=== PATIENT | female | born 1965 | race Caucasian/White ===

== ENCOUNTER 2016-11-23 19:07 | Observation (INO) | payer BC ==
--- NOTE | 2016-11-23 19:38 | ED ---
Chest Pain HPI - General Chief Complaint: Chest Pain Stated Complaint: mid back pain Time Seen by Provider: 11/23/16 19:17 Source: patient, family Mode of arrival: ambulatory Limitations: no limitations - History of Present Illness Initial Comments: This patient is a 51-year-old woman who presents to be evaluated for back pain that radiates to her chest. She states that it came on approximately 3 hours ago while she was cooking. She indicates the mid back, just to the right of the spine adjacent to the right scapula. She indicates that it radiates towards the front of her chest. The pain is constant, cramping in sensation and moderate intensity. She did not note any worsening or relieving factors. She states there were no associated symptoms. MD Complaint: chest pain -: hour(s) (3) Onset: other (Patient states she was cooking at the time) Pain Location: other (Mid back) Pain Radiation: other (Substernal) Severity: moderate Quality: other (Cramping) Consistency: constant Improves With: nothing Worsens With: nothing - Related Data Home Medications Medication Instructions Recorded Confirmed Acetaminophen Tab [Tylenol Tab] 1,000 mg PO ONCE PRN 11/23/16 11/23/16 Allergies Allergy/AdvReac Type Severity Reaction Status Date / Time No Known Allergies Allergy Verified 11/23/16 19:46 Review of Systems ROS Statement: Those systems with pertinent positive or pertinent negative responses have been documented in the HPI. ROS Other: All systems not noted in ROS Statement are negative. Constitutional: Denies: fever, chills, weakness Respiratory: Denies: cough, dyspnea, wheezes Cardiovascular: Reports: as per HPI, chest pain. Denies: palpitations, edema, syncope Gastrointestinal: Denies: abdominal pain, nausea, vomiting Genitourinary: Denies: dysuria, hematuria Musculoskeletal: Reports: as per HPI, back pain Skin: Denies: rash Neurological: Denies: headache, weakness, numbness EKG Findings - EKG Results: EKG: interpreted by ESTELLA MEYER, sinus rhythm (Rate approximately 84 bpm), normal axis, normal QRS, normal ST/T, no acute changes - NM, Pacemaker, Normal: Normal tracing: normal tracing Past Medical History Past Medical History: No Reported History History of Any Multi-Drug Resistant Organisms: None Reported Past Surgical History: Hernia Repair Past Psychological History: No Psychological Hx Reported Smoking Status: Never smoker Past Alcohol Use History: None Reported Past Drug Use History: None Reported General Exam Limitations: no limitations General appearance: alert, in no apparent distress Head exam: Present: atraumatic, normocephalic, normal inspection Eye exam: Present: normal appearance. Absent: scleral icterus, conjunctival injection ENT exam: Present: normal oropharynx Neck exam: Present: normal inspection, full ROM. Absent: meningismus Respiratory exam: Present: normal lung sounds bilaterally. Absent: respiratory distress, wheezes, rales, rhonchi, stridor, chest wall tenderness Cardiovascular Exam: Present: regular rate, normal rhythm, normal heart sounds. Absent: systolic murmur, diastolic murmur, rubs, gallop GI/Abdominal exam: Present: soft. Absent: distended, tenderness, guarding, rebound, mass, pulsatile mass, hernia Extremities exam: Present: normal inspection, normal capillary refill. Absent: pedal edema, calf tenderness Back exam: Present: normal inspection. Absent: tenderness, CVA tenderness (R), CVA tenderness (L), paraspinal tenderness, vertebral tenderness Neurological exam: Present: alert Skin exam: Present: warm, dry, intact, normal color. Absent: rash Course Vital Signs 11/23/16 19:08 Temperature 97.7 F Pulse Rate 80 Respiratory 18 Rate Blood Pressure 173/76 O2 Sat by Pulse 98 Oximetry Disposition Clinical Impression: Chest pain Disposition: ADMITTED IP TO THIS HOSP Condition: Fair Referrals: Usama Womack MD [Primary Care Provider] - 1-2 days
[2016-11-23 19:42] LABS: Basophils # (A) 0.1 k/uL (0-0.2); Basophils % (A) 1 %; CH 29.2; CHCM 34.4; Eosinophils # (A) 0.4 k/uL (0-0.7); Eosinophils % (A) 4 %; HCT 43.4 % (34.0-46.0); HDW 2.73; HGB 14.6 gm/dL (11.4-16.0); Luc # (Auto) 0.07; Luc % (Auto) 1; Lymphocytes # (A) 2.1 k/uL (1.0-4.8); Lymphocytes % (A) 25 %; MCH 28.7 pg (25.0-35.0); MCHC 33.7 g/dL (31.0-37.0); MCV 85.3 fL (80.0-100.0); Mean Platelet Volume 7.3; Monocytes # (A) 0.4 k/uL (0-1.0); Monocytes % (A) 4 %; Neutrophils # (A) 5.5 k/uL (1.3-7.7); Neutrophils % (A) 65 %; WBC 8.5 k/uL (3.8-10.6); WBC (Perox) 8.29
[2016-11-23 19:51] LABS: ALT 32 U/L (9-52); AST 18 U/L (14-36); Alkaline Phosphatase 56 U/L (38-126); Amylase 63 U/L (30-110); Anion Gap 12 mmol/L; Blood Urea Nitrogen 16 mg/dL (7-17); Carbon Dioxide 24 mmol/L (22-30); Chloride 104 mmol/L (98-107); Glucose 249 mg/dL (74-99); Magnesium 1.7 mg/dL (1.6-2.3); Non-African American GFR(MDRD) >60 (>60 ml/min/1.73 sqM); Sodium 140 mmol/L (137-145); Total Bilirubin 0.4 mg/dL (0.2-1.3); Total Protein 6.7 g/dL (6.3-8.2)
--- NOTE | 2016-11-23 19:53 | XR ---
EXAMINATION TYPE: XR chest 1V portable DATE OF EXAM: 11/23/2016 COMPARISON: NONE HISTORY: Chest pressure TECHNIQUE: Single frontal view of the chest is obtained. FINDINGS: Heart and mediastinum are normal. Lungs are clear. Diaphragm is normal. Bony thorax is int act. IMPRESSION: Normal chest
[2016-11-23 20:07] LABS: Creatine Kinase 55 U/L (30-135)
[2016-11-23 20:12] LABS: Partial Thromboplastin Time 23.3 sec (22.0-30.0)
[2016-11-23 20:20] LABS: Creatine Kinase MB 0.4 ng/mL (0.0-2.4); Troponin I <0.012 ng/mL (0.000-0.034)
[2016-11-23] MEDS ORDERED: NITROGLYCERIN SL TABS 0.4 MG TAB SUBLINGUAL PRN (20:51)
[2016-11-23] MEDS ORDERED: SODIUM CHLORIDE 0.9% 1,000 ML IV ONE (20:51)
[2016-11-23 21:04] LABS: Appearance,Urine Clear (Clear); Bilirubin,Urine Negative (Negative); Glucose,Urine (UA) 4+ (Negative); Ketones,Urine Trace (Negative); Leukocyte Esterase,Urine Small (Negative); Mucus,Urine Rare /hpf; Nitrite,Urine Negative (Negative); Particle Count 3360; Protein,Urine Trace (Negative); RBC,Urine 1 /hpf (0-5); Specific Gravity,Urine 1.027 (1.001-1.035); Squamous Epithelial Cell,Urine 1 /hpf (0-4); UA Billing (MACRO vs. MICRO) MICRO; Urobilinogen,Urine <2.0 mg/dL (<2.0); WBC,Urine 3 /hpf (0-5)
[2016-11-23 22:15] VITALS: BMI 44.9
[2016-11-23] MEDS: traMADol 50 MG TAB PO PRN (23:13)
[2016-11-23] MEDS: METOPROLOL TARTRATE 25 MG TAB PO SCH (23:14)
[2016-11-24 01:49] LABS: Creatine Kinase 50 U/L (30-135)
[2016-11-24 02:02] LABS: Creatine Kinase MB 0.4 ng/mL (0.0-2.4); Troponin I <0.012 ng/mL (0.000-0.034)
[2016-11-24] MEDS: traMADol 50 MG TAB PO PRN (07:13)
[2016-11-24 07:14] LABS: Cholesterol 185 mg/dL (<200); HDL Cholesterol 38 mg/dL (40-60)
[2016-11-24 07:25] LABS: Creatine Kinase 43 U/L (30-135)
[2016-11-24 07:36] LABS: Creatine Kinase MB 0.3 ng/mL (0.0-2.4); Troponin I <0.012 ng/mL (0.000-0.034)
[2016-11-24] MEDS: SODIUM CHLORIDE 0.9% 1,000 ML IV SCH (08:59)
[2016-11-24] MEDS ORDERED: ASPIRIN 325 MG TAB PO SCH (09:00)
[2016-11-24] MEDS: METOPROLOL TARTRATE 25 MG TAB PO SCH (10:22)
--- NOTE | 2016-11-24 12:31 | P.CRDCN ---
History of Present Illness Consult date: 11/24/16 History of present illness: This is a 51-year-old female. Past denies any previous medical history. Patient presents with complaints of right mid back pain while she was putting food in the crockpot yesterday. She states the pain came on all of a sudden and was sharp. She states intermittently the pain would move around to the mid sternal region and last for a couple of seconds. She would get episodes of shortness of breath associated with this chest pain. She denies dizziness, palpitations, nausea or vomiting or any radiation of the pain to the arms, neck or jaw. She states she has never seen a business support liaison for any reason has never had a history of CAD or an [place]. She has never smoked and has no significant family history. EKG done shows normal sinus mechanism, rate of 84 beats per minute with no T- wave abnormality. No old EKG for comparison. CBC was within normal limits, coagulation profile at baseline. BMP is normal. Troponin negative 3. Triglycerides 120 total cholesterol 185 LDL 123 HDL 38. Chest x-ray showed no acute cardiopulmonary process. Review of Systems REVIEW OF SYSTEMS: Patient denies any chest discomfort. No shortness of breath. No diaphoresis. Denies headache, dizziness, blurred vision, double vision. No dyspnea on exertion. Patient denies any stomach discomfort. No nausea, vomiting. No hematochezia. No hematemesis. Denies any black stools or blood in his stools. No syncope. No palpitations. No cough. No recent fever or chills. No muscle weakness or numbness. Complains of intermittent mid back pain relieved by tramadol. Past Medical History Past Medical History: No Reported History History of Any Multi-Drug Resistant Organisms: None Reported Past Surgical History: Hernia Repair Past Psychological History: No Psychological Hx Reported Smoking Status: Never smoker Past Alcohol Use History: None Reported Past Drug Use History: None Reported Medications and Allergies Home Medications Medication Instructions Recorded Confirmed Type Acetaminophen Tab [Tylenol Tab] 1,000 mg PO ONCE PRN 11/23/16 11/23/16 History Allergies Allergy/AdvReac Type Severity Reaction Status Date / Time No Known Allergies Allergy Verified 11/23/16 19:46 Physical Exam Vitals: Vital Signs Temp Pulse Pulse Resp BP BP Pulse Ox 11/24/16 04:00 98.0 F 64 18 148/81 96 11/24/16 00:00 98.6 F 73 16 140/71 97 11/23/16 22:23 97.7 F 81 18 135/77 96 11/23/16 20:57 86 20 154/102 96 11/23/16 19:08 97.7 F 80 18 173/76 98 Intake and Output 11/23/16 11/24/16 11/24/16 22:59 06:59 14:59 Other: # Voids 1 1 Weight 115.212 kg 115.212 kg GENERAL: This is a 51-year-old female in no apparent distress at the time of my examination. Morbidly obese. HEENT: Head is atraumatic, normocephalic. Pupils are equal, round. Sclerae anicteric. Conjunctivae are clear. Mucous membranes of the mouth are moist. Neck is supple. There is no jugular venous distention. No carotid bruit is heard. LUNGS: Clear to auscultation no wheezes, rales or rhonchi. No chest wall tenderness is noted on palpation or with deep breathing. HEART: Regular rate and rhythm without murmurs, rubs or gallops. S1 and S2 heard. ABDOMEN: Soft, nontender. Bowel sounds are heard. No organomegaly noted. EXTREMITIES: 2+ peripheral pulses with no evidence of peripheral edema and no calf tenderness noted. BACK: Reproducible pain right mid back. NEUROLOGIC: Patient is awake, alert and oriented x3. Results 11/23/16 19:23 11/23/16 19:23 Cardiac Enzymes 11/23/16 11/23/16 11/24/16 Range/Units 19:23 19:23 01:12 AST 18 (14-36) U/L CK-MB (CK-2) 0.4 0.4 (0.0-2.4) ng/mL Troponin I <0.012 <0.012 (0.000-0.034) ng/mL 11/24/16 Range/Units 06:36 AST (14-36) U/L CK-MB (CK-2) 0.3 (0.0-2.4) ng/mL Troponin I <0.012 (0.000-0.034) ng/mL Coagulation 11/23/16 Range/Units 19:23 PT 10.0 (9.0-12.0) sec APTT 23.3 (22.0-30.0) sec Lipids 11/24/16 Range/Units 06:36 Triglycerides 120 (<150) mg/dL Cholesterol 185 (<200) mg/dL HDL Cholesterol 38 L (40-60) mg/dL CBC 11/23/16 Range/Units 19:23 WBC 8.5 (3.8-10.6) k/uL RBC 5.10 (3.80-5.40) m/uL Hgb 14.6 (11.4-16.0) gm/dL Hct 43.4 (34.0-46.0) % Plt Count 237 (150-450) k/uL Comprehensive Metabolic Panel 11/23/16 Range/Units 19:23 Sodium 140 (137-145) mmol/L Potassium 4.0 (3.5-5.1) mmol/L Chloride 104 (98-107) mmol/L Carbon Dioxide 24 (22-30) mmol/L BUN 16 (7-17) mg/dL Creatinine 0.80 (0.52-1.04) mg/dL Glucose 249 H (74-99) mg/dL Calcium 9.0 (8.4-10.2) mg/dL AST 18 (14-36) U/L ALT 32 (9-52) U/L Alkaline Phosphatase 56 (38-126) U/L Total Protein 6.7 (6.3-8.2) g/dL Albumin 3.9 (3.5-5.0) g/dL Current Medications Generic Name Dose Route Start Last Admin Trade Name Freq PRN Reason Stop Dose Admin Aspirin 325 mg 11/24/16 09:00 Aspirin PO DAILY [facility] Sodium Chloride 1,000 mls @ 100 mls/hr 11/23/16 21:00 Saline 0.9% IV .Q10H LSAHAY Metoprolol Tartrate 25 mg 11/23/16 21:15 11/23/16 23:14 Lopressor PO 25 mg BID LASHAY Administration Nitroglycerin 0.4 mg 11/23/16 20:51 Nitrostat SUBLINGUAL Q5M PRN Chest Pain Tramadol HCl 50 mg 11/23/16 22:17 11/24/16 07:13 Ultram PO 50 mg QID PRN Administration Pain Intake and Output 11/23/16 11/24/16 11/24/16 22:59 06:59 14:59 Other: # Voids 1 1 Weight 115.212 kg 115.212 kg 11/23/16 19:23 11/23/16 19:23 EKG Interpretations (text) EKG indicates a normal sinus mechanism with no T wave abnormality or ST changes. Assessment and Plan Plan: ASSESSMENT 1. Chest pain, atypical. Most likely musculoskeletal. 2. Hyperlipidemia 3. Hypertension PLAN We will order an echocardiogram as well as a stress echo to evaluate any acute coronary syndrome. Although the patient's presentation and symptoms need more towards a muscular skeletal injury. If these tests are negative from a cardiac perspective the patient is stable for discharge home she can be discharged home on anti-inflammatory pain medication. We will also start the patient on Lipitor 10 mg by mouth daily and Lisinopril 10 mg by mouth daily. She should follow-up with Dr. Holman in 2 weeks. Nurse Practitioner note has been reviewed, I agree with a documented findings and plan of care. Patient was seen and examined.
--- NOTE | 2016-11-24 12:36 | P.STRESS ---
- Stress Test Note Stress Test Results/Findings: Exam Performed: stress echo exercise Exam Date: 11/24/16 Reason for Exam: cp Height: 5 ft 3 in Weight: 115.212 kg Protocol: Stage: Duration of Exercise: 8 min Resting Heart Rate: 76 Resting Blood Pressure: 134/69 Maximum Achieved Heart Rate: 155 Maximum Achieved Blood Pressure: 214/76 85% PMHR: 145 100% PMHR: 170 METS: 9.3 Technologist Comment: Stress Test Results/Findings: This is a 51-year-old female is admitted to the hospital with atypical chest pain. Cardiac enzymes and EKGs were negative. Patient walked on the Mian protocol for 8 minutes achieving a maximum heart rate of 155 and a blood pressure of 200/84. Baseline EKG showed sinus rhythm with normal CT interval and QRS duration. EKGs taken during after the x-ray did not reveal any significant changes to sized ischemia. Occasional PVCs were noted. Echo data: Baseline echo images showed normal wall motion and thickening. Exercise echo images suboptimal but there appears to be augmentation of wall motion and thickening in all the segments. Final impression: #1. Negative stress test #2. Probably normal stress echo with some technical limitations.
[2016-11-24] MEDS ORDERED: LISINOPRIL 10 MG TAB PO SCH (12:45)
[2016-11-24] MEDS ORDERED: ATORVASTATIN 10 MG TAB PO SCH (12:45)
--- NOTE | 2016-11-24 13:01 | ECHOF ---
Referral Reason:chest pain MEASUREMENTS -------- HEIGHT: 160.0 cm WEIGHT: 115.2 kg BP: 140/93 IVSd: 1.0 cm (0.6 - 1.1) LVIDd: 3.6 cm (3.9 - 5.3) LVPWd: 1.1 cm (0.6 - 1.1) IVSs: 1.5 cm LVIDs: 1.5 cm LVPWs: 1.8 cm Ao Diam: 3.3 cm (2.0 - 3.7) AV Cusp: 1.9 cm (1.5 - 2.6) LA Diam: 3.4 cm (2.7 - 3.8) MV EXCURSION: 15.271 mm (> 18.000) MV EF SLOPE: 150 mm/s (70 - 150) EPSS: 0.5 cm MV E Holden: 0.81 m/s MV DecT: 127 ms MV A Holden: 0.78 m/s MV E/A Ratio: 1.04 RAP: 5.00 mmHg RVSP: 35.06 mmHg FINDINGS -------- Sinus rhythm. This was a technically good study. Left ventricular wall thickness is normal. Overall left ventricular systolic function is normal with, an EF between 55 - 60 %. The right ventricle is normal in size and function. The left atrium is normal in size. The right atrium is normal in size. The aortic valve is trileaflet, and appears structurally normal. No aortic stenosis or regurgitation. There is trace mitral regurgitation. Mild tricuspid regurgitation present. The right ventricular systolic pressure, as measured by Doppler, is 35.06mmHg. Pulmonic valve appears structurally normal. The aortic root size is normal. The pericardium is normal. CONCLUSIONS -------- 1. Sinus rhythm. 2. Mild tricuspid regurgitation present. 3. The right ventricular systolic pressure, as measured by Doppler, is 35.06mmHg. 4. Pulmonic valve appears structurally normal. 5. The aortic root size is normal. 6. The pericardium is normal. 7. This was a technically good study. 8. Left ventricular wall thickness is normal. 9. Overall left ventricular systolic function is normal with, an EF between 55 - 60 %. 10. The right ventricle is normal in size and function. 11. The left atrium is normal in size. 12. The right atrium is normal in size. 13. The aortic valve is trileaflet, and appears structurally normal. No aortic stenosis or regurgitation. 14. There is trace mitral regurgitation. DISTRICT SALES MANAGER: Emily Carpio RDCS
--- NOTE | 2016-11-24 15:46 | XR ---
Three-view lumbar spine INDICATION: Pain TECHNIQUE: Three-view lumbar spine FINDINGS: Disc heights are preserved. Vertebral body heights are preserved. Alignment is normal. Ther e 5 lumbar-type vertebral bodies. The pedicles are intact. IMPRESSIONS: 1. Normal three-view lumbar spine.
--- NOTE | 2016-11-24 15:52 | P.HPIM ---
History of Present Illness H&P Date: 11/24/16 Chief Complaint: Acute back pain History of presenting complaint: This is a very pleasant [address] Snow. Rather unremarkable possible history. The patient was in the kitchen, was filling up her crockpot when she noticed a sudden pain in the lower back going to the front. There was no precordial chest pain, no shortness of breath. The pain was worse with body movements. She decided to come in. He denies any other, cardiac history in the past. She was admitted to rule out a cardiac cause. No perspiration, no dizziness, no lightheadedness. 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 EYES: Pupils equal. Conjunctiva normal. HEENT: External appearance of nose and ears normal, oral cavity grossly normal. NECK: JVD not raised; masses not palpable. HEART: First and second heart sounds are normal; no edema. LUNGS: Respiratory rate normal; clear to auscultation. ABDOMEN: Soft, nontender, liver spleen not palpable, no masses palpable. LYMPHATICS: No lymph nodes palpable in the axilla and neck. PSYCH: Alert and oriented x3; mood and affect normal. NEUROLOGICAL: Cranial nerves grossly intact; no facial asymmetry, power and sensation grossly intact. MUSCULOSKELETAL: Some tenderness in the lower spine in the lumbar area, straight leg raising up to 70 in both the sites, with no radiculopathy Investigations: EKG-unremarkable normal sinus rhythm 2-D echocardiogram-EF 55-60% with no wall motion abnormality Assessment: -Acute low back pain, likely small herniated disc, but no neuro deficits, admitted from the ER to rule out a cardiac cause which appears to be unlikely -Moderate obesity BMI 45 -Essential hypertension, new diagnosis Plan: Cartilage was consulted. We'll order the stress test. Did discuss at length with the patient about weight loss measures. We'll start the patient on NSAIDs. We will do a lumbar x-ray Past Medical History Past Medical History: No Reported History History of Any Multi-Drug Resistant Organisms: None Reported Past Surgical History: Hernia Repair Past Psychological History: No Psychological Hx Reported Smoking Status: Never smoker Past Alcohol Use History: None Reported Past Drug Use History: None Reported Medications and Allergies Home Medications Medication Instructions Recorded Confirmed Type Acetaminophen Tab [Tylenol Tab] 1,000 mg PO ONCE PRN 11/23/16 11/23/16 History Allergies Allergy/AdvReac Type Severity Reaction Status Date / Time No Known Allergies Allergy Verified 11/23/16 19:46 Results CBC & Chem 7: 11/23/16 19:23 11/23/16 19:23
[2016-11-24] MEDS ORDERED: NAPROXEN 250 MG TAB PO SCH (15:58)
[2016-11-24 16:15] VITALS: BP 134/79; PULSE 67; RESP 14; TEMP 98.7
--- NOTE | 2016-11-25 09:36 | ECHOS ---
Stress Test Results/Findings: Exam Performed: stress echo exercise Exam Date: 11/24/16 Reason for Exam: cp Height: 5 ft 3 in Weight: 115.212 kg Protocol: Stage: Duration of Exercise: 8 min Resting Heart Rate: 76 Resting Blood Pressure: 134/69 Maximum Achieved Heart Rate: 155 Maximum Achieved Blood Pressure: 214/76 85% PMHR: 145 100% PMHR: 170 METS: 9.3 Technologist Comment: Stress Test Results/Findings: This is a 51-year-old female is admitted to the hospital with atypical chest pain. Cardiac enzymes and EKGs were negative. Patient walked on the Mian protocol for 8 minutes achieving a maximum heart rate of 155 and a blood pressure of 200/84. Baseline EKG showed sinus rhythm with normal AR interval and QRS duration. EKGs taken during and after the stress test did not reveal any significant changes to suggest ischemia. Occasional PVCs were noted. Echo data: Baseline echo images showed normal wall motion and thickening. Exercise echo images are suboptimal but there appears to be augmentation of wall motion and thickening in all the segments. Final impression: #1. Negative stress test #2. Probably normal stress echo with some technical limitations. TERRANCE
--- NOTE | 2016-11-26 23:50 | P.DS ---
Providers Date of admission: 11/23/16 20:53 Expected date of discharge: 11/24/16 Attending physician: Blanco Steven Consults: 11/23/16 20:51 Consult Physician Routine Consulting Provider: Jose Salas Consult Reason/Comments: chest pain Do you want consulting provider notified?: Yes Primary care physician: Usama Womack Hospital Course: Final diagnoses: -Acute low back pain, likely small herniated disc, but no neuro deficits, -Moderate obesity BMI 45 -Essential hypertension, new diagnosis Hospital course: This patient presented with sudden onset of lower back pain around to the front. Reproducible. [place] to be small herniated disc. Patient did undergo stress echocardiogram reported to be negative. 2-D echo showed good wall motion. Lumbar x-ray unremarkable. Cleared by cartilage to go home. LDL 123. Patient's calculated cardiovascular risk patient not felt to be candidate for [id number] agent. Patient was counseled about weight loss Physical examination: Reproducible reproducible pain in the lower lumbar region Consultation: Dr. Holman from cardiology Patient Condition at Discharge: Fair Plan - Discharge Summary New Discharge Prescriptions: New Lisinopril-Hctz 20-12.5 mg [Zestoretic 20-12.5] 1 tab PO DAILY #30 tab Naproxen [Naprosyn] 250 mg PO BID #20 tab Discontinued Acetaminophen Tab [Tylenol Tab] 1,000 mg PO ONCE PRN PRN Reason: Pain Discharge Medication List Lisinopril-Hctz 20-12.5 mg [Zestoretic 20-12.5] 1 tab PO DAILY #30 tab 11/24/16 [Rx] Naproxen [Naprosyn] 250 mg PO BID #20 tab 11/24/16 [Rx] Follow up Appointment(s)/Referral(s): Usama Womack MD [Primary Care Provider] - 1 Week Mart Holman MD [STAFF PHYSICIAN] - 12/15/16 3:15 pm (Appt at [facility] on 12/15/16 at 15:15) Patient Instructions/Handouts: Chest Pain (GEN) Discharge Disposition: HOME SELF-CARE
== END 2016-11-24 16:22 | disposition home or self-care (01) ==
LOC: EC 19:07 → 3OBS 20:53
PROVIDERS: ADMIT Hospitalist; ATTEND Hospitalist
DX: R07.89 Other chest pain (principal); R06.02 Shortness of breath; E78.5 Hyperlipidemia, unspecified; I10 Essential (primary) hypertension; M54.6 Pain in thoracic spine; E66.01 Morbid (severe) obesity due to excess calories; Z68.42 Body mass index [BMI] 45.0-49.9, adult; M54.5 Low back pain
CPT/HCPCS: 99285; 36415; 93005; 93017; 93306; 93350; 85379; 80061; 80053; 82150; 82550 ×2; 82553 ×2; 83690; 83735; 84484 ×2; 85025; 85610; 85730; 81001; 71010; 72100; G0378 ×2

== ENCOUNTER → 2016-12-17 | Outpatient (CLI) | payer BC | END | disposition home or self-care (01) | LOC: LABWHC1 08:32 | PROVIDERS: ATTEND Family Medicine | DX: E78.00 Pure hypercholesterolemia, unspecified (principal) | CPT/HCPCS: 36415; 80061; 82550; 86141 ==

== ENCOUNTER 2020-07-10 15:41 | Emergency (ER) | payer BC, OTHER ==
[2020-07-10 15:46] VITALS: RESP 18
--- NOTE | 2020-07-10 15:53 | ED ---
General Adult HPI - General Chief complaint: Fever Stated complaint: covid+ Time Seen by Provider: 07/10/20 15:45 Source: patient, EMS Mode of arrival: EMS Limitations: no limitations - History of Present Illness Initial comments: Patient presents the ED by ambulance for evaluation. Patient states that she was diagnosed with Covid 8 days ago, and she states that she has had symptoms for the past 10 days. Patient states that she has had symptoms of cough and congestion. Patient states that she has felt worse today. She states that she feels weak and dizzy, so she called for an ambulance. Patient denies having a fever, although she is noted to have a fever on arrival to the ED. Patient denies having any pain, headache, focal numbness/weakness/neuro deficit, neck pain or stiffness, sore throat, chest pain or pressure, dyspnea, hemoptysis, pa lpitations, syncope, abdominal pain, nausea/vomiting/diarrhea, bloody or melanotic stool, dysuria or urinary symptoms, leg or calf swelling or pain, or any other symptoms or complaints. - Related Data Previous Rx's Medication Instructions Recorded Lisinopril-Hctz 20-12.5 mg 1 tab PO DAILY #30 tab 11/24/16 [Zestoretic 20-12.5] Naproxen [Naprosyn] 250 mg PO BID #20 tab 11/24/16 Allergies Allergy/AdvReac Type Severity Reaction Status Date / Time No Known Allergies Allergy Verified 07/10/20 15:46 Review of Systems ROS Statement: Those systems with pertinent positive or pertinent negative responses have been documented in the HPI. ROS Other: All systems not noted in ROS Statement are negative. Past Medical History Past Medical History: No Reported History History of Any Multi-Drug Resistant Organisms: None Reported Past Surgical History: Hernia Repair Past Psychological History: No Psychological Hx Reported Smoking Status: Never smoker Past Alcohol Use History: None Reported Past Drug Use History: None Reported General Exam Limitations: no limitations General appearance: alert, in no apparent distress Head exam: Present: atraumatic, normocephalic Eye exam: Present: normal appearance, EOMI ENT exam: Present: normal oropharynx, mucous membranes moist Neck exam: Present: other (Trachea is in midline). Absent: tenderness, meningismus Respiratory exam: Present: normal lung sounds bilaterally. Absent: respiratory distress, wheezes, rales, rhonchi, stridor Cardiovascular Exam: Present: regular rate, normal rhythm, normal heart sounds, other (Normal radial pulses bilaterally) GI/Abdominal exam: Present: soft. Absent: distended, tenderness, guarding Extremities exam: Present: other (Negative Homans sign bilaterally). Absent: tenderness, pedal edema, calf tenderness Neurological exam: Present: alert, oriented X3. Absent: motor sensory deficit Psychiatric exam: Present: normal affect, normal mood Skin exam: Present: warm, dry, intact, normal color Course Vital Signs 07/10/20 07/10/20 07/10/20 15:42 18:20 19:00 Temperature 101.4 F H 98.5 F 99.3 F Pulse Rate 93 93 88 Respiratory 18 18 18 Rate Blood Pressure 146/74 132/66 128/88 O2 Sat by Pulse 92 L 93 L 93 L Oximetry 07/10/20 07/10/20 20:00 21:00 Temperature 99.5 F Pulse Rate 85 88 Respiratory 18 18 Rate Blood Pressure 131/87 O2 Sat by Pulse 93 L 94 L Oximetry - Reevaluation(s) Reevaluation #1: 07/10/20 20:54 Patient meets inclusion criteria for monoclonal antibody treatment for Covid. Risks and benefits of monoclonal antibody treatment were discussed with the patient, and she wishes to proceed with the treatment at this time. 07/10/20 22:53 Patient denies development of any new symptoms while in the ED. Patient remains alert and breathing comfortably with a borderline low oxygen saturation. Patient is aware of her test results, and she feels comfortable going home after her monoclonal antibody infusion is completed. She was counseled about Covid pneumonia and she was clearly explained return and follow-up instructions. Patient was instructed to follow up closely with her primary care provider. Patient was also instructed to have a low threshold for return to the ED should her symptoms worsen. EKG Findings - EKG Comments: EKG Findings:: EKG is very limited secondary to motion, normal sinus rhythm, ventricular rate of 86 bpm, normal GA and QRS intervals, normal QT interval, normal axis, no definite ST or T-wave abnormality Medical Decision Making - Medical Decision Making Patient is breathing comfortably in the ED with only a borderline low oxygen saturation. Patient's imaging findings are consistent with Covid pneumonia. Patient was treated with monoclonal antibody infusion therapy in the ED. Will discharge patient home with clear return instructions given. Patient feels comfortable with this plan. - Lab Data Result diagrams: 07/10/20 16:07 07/10/20 16:07 Lab Results 07/10/20 07/10/20 07/10/20 Range/Units 16:07 16:07 16:07 WBC 6.9 (3.8-10.6) k/uL RBC 5.50 H (3.80-5.40) m/uL Hgb 15.5 (11.4-16.0) gm/dL Hct 43.8 (34.0-46.0) % MCV 79.6 L (80.0-100.0) fL MCH 28.1 (25.0-35.0) pg MCHC 35.3 (31.0-37.0) g/dL RDW 12.5 (11.5-15.5) % Plt Count 195 (150-450) k/uL MPV 7.7 Neutrophils % 84 % Lymphocytes % 9 % Monocytes % 4 % Eosinophils % 2 % Basophils % 0 % Neutrophils # 5.8 (1.3-7.7) k/uL Lymphocytes # 0.7 L (1.0-4.8) k/uL Monocytes # 0.3 (0-1.0) k/uL Eosinophils # 0.1 (0-0.7) k/uL Basophils # 0.0 (0-0.2) k/uL PT 10.4 (9.0-12.0) sec INR 1.0 (<1.2) APTT 22.3 (22.0-30.0) sec D-Dimer 0.61 H (<0.60) mg/L FEU Sodium 135 L (137-145) mmol/L Potassium 3.9 (3.5-5.1) mmol/L Chloride 97 L (98-107) mmol/L Carbon Dioxide 26 (22-30) mmol/L Anion Gap 12 mmol/L BUN 18 H (7-17) mg/dL Creatinine 0.88 (0.52-1.04) mg/dL Est GFR (CKD-EPI)AfAm 87 (>60 ml/min/1.73 sqM) Est GFR (CKD-EPI)NonAf 75 (>60 ml/min/1.73 sqM) Glucose 155 H (74-99) mg/dL Plasma Lactic Acid Grover (0.7-2.0) mmol/L Calcium 8.2 L (8.4-10.2) mg/dL Magnesium 2.4 H (1.6-2.3) mg/dL Total Bilirubin 1.0 (0.2-1.3) mg/dL AST 35 (14-36) U/L ALT 29 (4-34) U/L Alkaline Phosphatase 46 (38-126) U/L Lactate Dehydrogenase 818 H (313-618) U/L Troponin I (0.000-0.034) ng/mL C-Reactive Protein 150.9 H (<10.0) mg/L Total Protein 6.9 (6.3-8.2) g/dL Albumin 3.5 (3.5-5.0) g/dL Urine Color Urine Appearance (Clear) Urine pH (5.0-8.0) Ur Specific Gray (1.001-1.035) Urine Protein (Negative) Urine Glucose (UA) (Negative) Urine Ketones (Negative) Urine Blood (Negative) Urine Nitrite (Negative) Urine Bilirubin (Negative) Urine Urobilinogen (<2.0) mg/dL Ur Leukocyte Esterase (Negative) Urine RBC (0-5) /hpf Urine WBC (0-5) /hpf Ur Squamous Epith Cells (0-4) /hpf Urine Bacteria (None) /hpf Urine Mucus (None) /hpf Coronavirus (PCR) (Not Detectd) 07/10/20 07/10/20 07/10/20 Range/Units 16:07 16:07 16:28 WBC (3.8-10.6) k/uL RBC (3.80-5.40) m/uL Hgb (11.4-16.0) gm/dL Hct (34.0-46.0) % MCV (80.0-100.0) fL MCH (25.0-35.0) pg MCHC (31.0-37.0) g/dL RDW (11.5-15.5) % Plt Count (150-450) k/uL MPV Neutrophils % % Lymphocytes % % Monocytes % % Eosinophils % % Basophils % % Neutrophils # (1.3-7.7) k/uL Lymphocytes # (1.0-4.8) k/uL Monocytes # (0-1.0) k/uL Eosinophils # (0-0.7) k/uL Basophils # (0-0.2) k/uL PT (9.0-12.0) sec INR (<1.2) APTT (22.0-30.0) sec D-Dimer (<0.60) mg/L FEU Sodium (137-145) mmol/L Potassium (3.5-5.1) mmol/L Chloride (98-107) mmol/L Carbon Dioxide (22-30) mmol/L Anion Gap mmol/L BUN (7-17) mg/dL Creatinine (0.52-1.04) mg/dL Est GFR (CKD-EPI)AfAm (>60 ml/min/1.73 sqM) Est GFR (CKD-EPI)NonAf (>60 ml/min/1.73 sqM) Glucose (74-99) mg/dL Plasma Lactic Acid Grover 1.3 (0.7-2.0) mmol/L Calcium (8.4-10.2) mg/dL Magnesium (1.6-2.3) mg/dL Total Bilirubin (0.2-1.3) mg/dL AST (14-36) U/L ALT (4-34) U/L Alkaline Phosphatase (38-126) U/L Lactate Dehydrogenase (313-618) U/L Troponin I <0.012 (0.000-0.034) ng/mL C-Reactive Protein (<10.0) mg/L Total Protein (6.3-8.2) g/dL Albumin (3.5-5.0) g/dL Urine Color Yellow Urine Appearance Clear (Clear) Urine pH 6.0 (5.0-8.0) Ur Specific Gray 1.024 (1.001-1.035) Urine Protein 1+ H (Negative) Urine Glucose (UA) Negative (Negative) Urine Ketones 1+ H (Negative) Urine Blood Moderate H (Negative) Urine Nitrite Negative (Negative) Urine Bilirubin Negative (Negative) Urine Urobilinogen 4.0 (<2.0) mg/dL Ur Leukocyte Esterase Negative (Negative) Urine RBC 1 (0-5) /hpf Urine WBC 3 (0-5) /hpf Ur Squamous Epith Cells <1 (0-4) /hpf Urine Bacteria Rare H (None) /hpf Urine Mucus Rare H (None) /hpf Coronavirus (PCR) (Not Detectd) 07/10/20 Range/Units 16:42 WBC (3.8-10.6) k/uL RBC (3.80-5.40) m/uL Hgb (11.4-16.0) gm/dL Hct (34.0-46.0) % MCV (80.0-100.0) fL MCH (25.0-35.0) pg MCHC (31.0-37.0) g/dL RDW (11.5-15.5) % Plt Count (150-450) k/uL MPV Neutrophils % % Lymphocytes % % Monocytes % % Eosinophils % % Basophils % % Neutrophils # (1.3-7.7) k/uL Lymphocytes # (1.0-4.8) k/uL Monocytes # (0-1.0) k/uL Eosinophils # (0-0.7) k/uL Basophils # (0-0.2) k/uL PT (9.0-12.0) sec INR (<1.2) APTT (22.0-30.0) sec D-Dimer (<0.60) mg/L FEU Sodium (137-145) mmol/L Potassium (3.5-5.1) mmol/L Chloride (98-107) mmol/L Carbon Dioxide (22-30) mmol/L Anion Gap mmol/L BUN (7-17) mg/dL Creatinine (0.52-1.04) mg/dL Est GFR (CKD-EPI)AfAm (>60 ml/min/1.73 sqM) Est GFR (CKD-EPI)NonAf (>60 ml/min/1.73 sqM) Glucose (74-99) mg/dL Plasma Lactic Acid Grover (0.7-2.0) mmol/L Calcium (8.4-10.2) mg/dL Magnesium (1.6-2.3) mg/dL Total Bilirubin (0.2-1.3) mg/dL AST (14-36) U/L ALT (4-34) U/L Alkaline Phosphatase (38-126) U/L Lactate Dehydrogenase (313-618) U/L Troponin I (0.000-0.034) ng/mL C-Reactive Protein (<10.0) mg/L Total Protein (6.3-8.2) g/dL Albumin (3.5-5.0) g/dL Urine Color Urine Appearance (Clear) Urine pH (5.0-8.0) Ur Specific Gray (1.001-1.035) Urine Protein (Negative) Urine Glucose (UA) (Negative) Urine Ketones (Negative) Urine Blood (Negative) Urine Nitrite (Negative) Urine Bilirubin (Negative) Urine Urobilinogen (<2.0) mg/dL Ur Leukocyte Esterase (Negative) Urine RBC (0-5) /hpf Urine WBC (0-5) /hpf Ur Squamous Epith Cells (0-4) /hpf Urine Bacteria (None) /hpf Urine Mucus (None) /hpf Coronavirus (PCR) Detected A (Not Detectd) - Radiology Data Radiology results: report reviewed (Chest x-ray: Patchy perihilar and basilar infiltrates noted compatible with Covid 19 pneumonia; CT angiography chest: Bilateral infiltrates correlate for diffuse pneumonia, no central pulmonary embolism, mediastinal and hilar lymphadenopathy) Disposition Clinical Impression: Pneumonia due to COVID-19 virus Disposition: HOME SELF-CARE Condition: Stable Instructions (If sedation given, give patient instructions): Fever in Adults (ED), Coronavirus Disease 2019 (COVID-19) Additional Instructions: Return to the ER immediately should you develop increased shortness of breath, chest pain, feeling dizzy or faint, persistent vomiting, or new or worsening symptoms. Follow up closely with your primary care provider. Is patient prescribed a controlled substance at d/c from ED?: No Referrals: Carolyn Young MD [Primary Care Provider] - 1-2 days Time of Disposition: 22:57
[2020-07-10] MEDS ORDERED: SODIUM CHLORIDE 0.9% 1,000 ML IV ONE (15:55)
[2020-07-10] MEDS ORDERED: ACETAMINOPHEN TAB 500 MG TAB PO STA (15:55)
[2020-07-10 16:30] LABS: Basophils % (A) 0 %; Eosinophils # (A) 0.1 k/uL (0-0.7); Eosinophils % (A) 2 %; HCT 43.8 % (34.0-46.0); HGB 15.5 gm/dL (11.4-16.0); Lymphocytes # (A) 0.7 k/uL (1.0-4.8); Lymphocytes % (A) 9 %; MCH 28.1 pg (25.0-35.0); MCHC 35.3 g/dL (31.0-37.0); MCV 79.6 fL (80.0-100.0); Mean Platelet Volume 7.7; Monocytes # (A) 0.3 k/uL (0-1.0); Monocytes % (A) 4 %; Neutrophils # (A) 5.8 k/uL (1.3-7.7); Neutrophils % (A) 84 %; Platelet Count 195 k/uL (150-450); RDW 12.5 % (11.5-15.5); WBC 6.9 k/uL (3.8-10.6)
[2020-07-10 16:43] LABS: Albumin 3.5 g/dL (3.5-5.0); Calcium 8.2 mg/dL (8.4-10.2); Magnesium 2.4 mg/dL (1.6-2.3); Potassium 3.9 mmol/L (3.5-5.1); Total Protein 6.9 g/dL (6.3-8.2)
[2020-07-10 16:44] LABS: Partial Thromboplastin Time 22.3 sec (22.0-30.0); Prothrombin Time 10.4 sec (9.0-12.0)
--- NOTE | 2020-07-10 16:55 | XR ---
EXAMINATION TYPE: XR chest 1V portable DATE OF EXAM: 07/10/2020 HISTORY: Shortness of breath. COMPARISON: 11/23/2016 TECHNIQUE: Single view of the chest is submitted. FINDINGS: Demonstrated are scattered senescent parenchymal change. Patchy perihilar and basilar infiltrates noted compatible with Covid 19 pneumonia. The heart is stable. Hilar and mediastinal structures are within normal limits. Degenerative changes are seen of the dorsal spine. IMPRESSION: 1. Patchy perihilar and basilar infiltrates noted compatible with Covid 19 pneumonia.
[2020-07-10 16:59] LABS: D-Dimer 0.61 mg/L FEU (<0.60)
[2020-07-10 17:11] LABS: C Reactive Protein 150.9 mg/L (<10.0)
[2020-07-10 18:35] LABS: Appearance,Urine Clear (Clear); Bacteria,Urine Rare /hpf; Bilirubin,Urine Negative (Negative); Blood,Urine Moderate (Negative); Color,Urine Yellow; Glucose,Urine (UA) Negative (Negative); Ketones,Urine 1+ (Negative); Leukocyte Esterase,Urine Negative (Negative); Mucus,Urine Rare /hpf; Nitrite,Urine Negative (Negative); Protein,Urine 1+ (Negative); RBC,Urine 1 /hpf (0-5); Specific Gravity,Urine 1.024 (1.001-1.035); Squamous Epithelial Cell,Urine <1 /hpf (0-4); WBC,Urine 3 /hpf (0-5)
--- NOTE | 2020-07-10 20:04 | CT ---
EXAMINATION TYPE: CT chest angio for PE DATE OF EXAM: 07/10/2020 COMPARISON: None HISTORY: Elevated d-dimer, +covid. CT DLP: 494.7 mGycm Automated exposure control for dose reduction was used. CONTRAST: CT Chest for pulmonary embolism performed with with IV Contrast, patient injected with 100ml mL of Is ovue 370. FINDINGS: LUNGS: Diffuse bilateral infiltrate greater along the periphery of the lungs with no pleural effusion or pneumothorax. MEDIASTINUM: There is satisfactory enhancement of the central pulmonary arteries. Limitation involvin g the distal branches due to artifact.. There is hilar and mediastinal lymphadenopathy. OTHER: Marked enlargement the right lobe of thyroid with tracheal deviation from right to left likel y in the basis of a large substernal thyroid nodule. Hypertrophic and degenerative change of the spin e.. Liver diffusely low in attenuation correlate for fatty infiltration. Small 1.5 cm right adrenal n odule too small to characterize but likely related to adenoma. IMPRESSION: 1. Bilateral infiltrates correlate for diffuse pneumonia. 2. No central pulmonary embolism. Artifact limits assessment of the distal branches which are nondiag nostic in assessment. 3. Mediastinal and hilar lymphadenopathy.
[2020-07-10] MEDS ORDERED: BAMLANIVIMAB (EUA) 700 MG, ETESEVIMAB (EUA) 1,400 MG in SODIUM CHLORIDE 0.9% 50 ML IVPB ONE (21:45)
[2020-07-10] MEDS ORDERED: SODIUM CHLORIDE 0.9% 50 ML IVPB ONE (22:45)
[2020-07-11] MEDS ORDERED: ACETAMINOPHEN TAB 500 MG TAB PO STA (00:26)
[2020-07-11] MEDS ORDERED: IBUPROFEN 600 MG TAB PO STA (00:27)
[2020-07-11 00:31] VITALS: BP 129/81; PULSE 101; TEMP 103
[2020-07-11 13:28] LABS: Ferritin 734.2 ng/mL (10.0-291.0)
== END 2020-07-11 00:40 | disposition home or self-care (01) ==
LOC: EC 15:41
DX: U07.1 COVID-19 (principal); J12.82 Pneumonia due to coronavirus disease 2019
CPT/HCPCS: 36415; 93005; 85379; 80053; 82728; 83605; 83615; 83735; 84484; 85025; 85610; 85730; 86140; 81001; 87040; 84145; 87635; 71045; 71275; 99284; 96365; 96361; U0003; Q9967; Q0245